=== PATIENT | female | born 1955 | race Caucasian/White ===

== ENCOUNTER 2018-01-18 05:24 | Observation (INO) | payer OTHER ==
[2018-01-18] VITALS (9 sets, daily range): BP systolic 142–163; BP diastolic 62–95
[~2018-01-18] VITALS: Ht 170.2 cm; Wt 132.0 kg
--- NOTE | ~2018-01-18 | O ---
[facility] [place] [address] OPERATIVE REPORT Name: ADELINA DA SILVA David Room #: 411-P [facility] M.Danilo#: [id number] Admission: 01/18/18 Attend Phys: Jorden Montes MD Discharge: Date of : 51 Report #: [id number] THIS REPORT FOR: //name// CC: Arthur Pittman PREOPERATIVE DIAGNOSIS: Incarcerated incisional hernia. POSTOPERATIVE DIAGNOSES: 1. Incarcerated incisional hernia. 2. Mildly nodular liver with fatty liver. PROCEDURES PERFORMED: 1. Laparoscopic repair of incarcerated incisional hernia with a 6-inch circular Ventralight ST with echo technology. 2. Needle biopsy of liver. ANESTHESIA: General. SURGEON: Jorden Montes M.D. COMPLICATIONS: None. ESTIMATED BLOOD LOSS: 10 mL. PROCEDURE NOTE: With the patient under anesthesia, she received IV vancomycin. Abdomen was prepped and draped in the sterile fashion. Flores catheter was placed. Timeout was performed. A 0.25% Marcaine was used to incise the skin. An incision was made in the left upper quadrant. This was about 2 cm in size. After incising through the skin and subcutaneous tissue, the anterior fascia was identified. The anterior fascia was opened under visualization and 0 Vicryl suture placed on the fascia. The muscle was spread with hemostat. Posterior sheath was then identified, grasped with hemostat and opened between the clamps. The free peritoneal cavity was identified. Origin balloon trocar was then placed. A 10-mm scope was placed. The liver did appear mildly nodular and fatty looking. The patient has had past elevated liver function tests, CT showing fatty liver. The two 5-mm trocars were placed in the lateral abdomen. These were placed lateral to the inferior epigastric vessel. These were placed under visualization, without harm to the underlying tissue. The patient's incisional hernia was incarcerated with majority of the omental fat. Inferiorly, there was fat that was tethered to the sigmoid colon. The incarcerated fat was free and reduced back into the abdominal cavity. The fascia defect was identified. There were 2 separate defects; one was about a centimeter in size superiorly. There was a larger defect which was somewhat septated and the entire defect measured 6 cm in the craniocaudad direction. A 15 cm or 6-inch oneida Ventralight mesh was used with ST. The Origin balloon [address] [address] OPERATIVE REPORT Name: ADELINA DA SILVA Room #: 411-P [facility] Darlene Jaimes#: [id number] Admission: 01/18/18 Attend Phys: Jorden Montes MD Discharge: Date of : 51 Report #: [id number] trocar was removed. Mesh was placed directly into this opening. The balloon trocar was then replaced. The mesh was opened up. The suture retrieval was placed just below the umbilicus and the balloon port of the echo system was pulled up. The echo was inflated. This allowed the mesh to be pulled up against the wall. The mesh was then tacked with SorbaFix; 30 tacks were used. The tacks were placed about 2 cm apart along the edges and then also placed internal and also placed in the medial aspect of the mesh. Again, the mesh did not extend to the inferior epigastric vessel. Prior to the mesh, I did dissect the peritoneum inferiorly off the wall. The peritoneum was then tacked back up. I was above the bladder area. [facility] suture was placed with transfascial suture. This was placed at 12, 3, 6 and 9 o'clock positions. Small incision was made. The suture retrieval was placed through the incision, through the fascia and through the mesh, grabbing one in and then through the same hole, skin incision through a different area, fascia grabbing the other in. This was performed in 12, 9, 6 and 3 o'clock position. Mesh seated well. No bleeding was identified. Liver biopsy was then performed along the edge of the left lobe of the liver using an 18-gauge Monopty core biopsy and 2 pieces of the liver were obtained. There were fatty changes in the liver on CT scan and she did have a FibroScan, but I am afraid that she may have early cirrhosis. Surgicel was placed over this biopsy site. Hemostasis obtained. Trocars removed. CO2 was evacuated. The posterior sheath at the small cutdown site was closed with [id number]-zx-henue 0 Vicryl x 2 and 2-0 PDS lidnni-kp-ayzpq x 2. Anterior sheath was then also closed with 0 PDS bzreko-dw-bkgbh x 2. Skin was irrigated. The trocar site skin incision was closed with 5-0 PDS. Dermabond was placed over the incisions including the small transfascial suture sites. Band-Aid was placed over the incision sites. The patient tolerated procedure well. Flores catheter will be removed. She will be taken to the recovery room in good condition. By: [id number] Jorden Montes MD /nt
--- NOTE | ~2018-01-18 | EKG ---
[address] [address] ELECTROCARDIOGRAM REPORT Name: ADELINA DA SILVA Room #: 150-2 [facility]#: [id number] Admission: 01/18/18 Attend Phys: Jorden Montes MD Discharge: Date of : 51 Report #: [id number] THIS REPORT FOR: //name// [facility] Test Date: 2018-01-18 Test Time: 06:39:13 Pat Name: ADELINA DA SILVA Department: Room: 150 2 Gender: F Rehabilitation Program Manager: BOY : 1955 Requested By: Jorden Montes Order Number: [id number] MD: Walter Lyons Measurements Intervals Cranks Rate: 68 P: 49 FL: 157 QRS: 74 QRSD: 105 T: 22 QT: 435 QTc: 463 Interpretive Statements Sinus rhythm No previous ECG available for comparison Electronically Signed On 01-18-2018 8:17:48 CDT by Walter Lyons [email or web address] <ELECTRONICALLY SIGNED> By: Walter Lyons MD 01/18/18 0817 0639 06 MD DELMY Hairston
--- NOTE | ~2018-01-18 | PATH ---
[facility] [address] [place] [address] PATHOLOGY RPT PROCEDURE Name: REKHAADELINA D Room #: 411-P HAYDEN Jaimes#: [id number] Admission: 01/18/18 Date of : 51 Discharge: 01/19/18 Report #: [id number] Path Case #: [id number] [facility] Accession Number: [id number] . 01 Material submitted: . LIVER BIOPSY X2 . 01 Clinical history: . Incisional hernia . 02 Diagnosis: Liver, needle core biopsy: - Steatohepatitis with mild activity and bridging fibrosis. - NAFLD activity score: 5/8 (please see comment). [facility]/01/20/2018 . 02 Comment: Examination shows approximately 66% macrovesicular steatosis (score of 2/3), rare foci of lobular inflammation (2-4 foci, score of 2/3) as well as a few ballooned hepatocytes in the periportal areas (score of 1/2). The total NAFLD activity score is 5/8. Satellitosis is not identified. The portal chronic inflammation is mixed, and shows occasional plasma cells, lymphocytes as well as a rare eosinophil. There are no granulomata identified, ductular proliferation, lymphoid aggregates, or hepatocyte rosettes present. It is noted the liver enzymes (AST as well as ALT and the alk phos are within limits). . Special stains are performed on block A2. Trichrome stain shows scattered areas of perisinusoidal fibrosis, periportal fibrosis as well as dnpihi-os-jeqxgp bridging fibrosis in scattered areas. The reticulin stain is distorted by the steatosis. The iron stain is negative. PAS with and without diastase show no intracytoplasmic globules in zone 1. . Steatohepatitis can be seen in several clinical settings including situations of insulin resistance, with alcohol use, as an adverse reaction to several medications, with hyperlipidemias, after gastric or small bowel resections, and as an idiopathic variant. Please correlate clinically. . (IUV:mml; 01/20/2018) . 02 Electronically signed: . Hien Moreira MD, Pathologist NPI- [id number] . 01 Gross description: . The specimen is received in formalin, labeled "Adelina Zhu - Liver biopsy X2", are two cores measuring 2.0 cm and 1.6 cm [place] [address] PATHOLOGY RPT PROCEDURE Name: ADELINA ZUH Room #: 411-P [facility]AYDEN Jaimes#: [id number] Admission: 01/18/18 Date of : 51 Discharge: 01/19/18 Report #: [id number] Path Case #: [id number] 0.1 cm in diameter. Specimen is entirely submitted in A1-A2. . (SWS; 01/18/2018) [facility]/ . 02 Pathologist provided ICD-10: K75.81, K74.0 . 02 CPT . 259118, 378996, 443679, 595125, 947158, 218713 Performed at: [address], [place] [id number] MD Erik Krause MD Phone: [phone] Performed at: [address] [id number] MD Hien Moreira MD Phone: [phone]
[~2018-01-18 05:24] MED LIST: ALEVE220 MG PO; FARXIGA5 MG PO; GLUCOPHAGE1000 MG PO; OMEPRAZOLE 20 M20 M1 PO; PAXIL40 MG PO; PROAIR HFA8.5 GM INH; SIMVASTATIN40 MG PO; XANAX 0.5 MG0.5 MG PO
[2018-01-18 06:58] LABS: HEMATOCRIT 42.4 % (37.0-47.0); HEMOGLOBIN 14.3 gm/dL (12.0-15.0)
[2018-01-18 07:00] LABS: CALCIUM 9.4 mg/dL (8.5-10.1); CREATININE 0.9 mg/dL (0.6-1.0); POTASSIUM 3.8 mmol/L (3.5-5.1)
[2018-01-18 07:06] LABS: TOTAL BILIRUBIN 0.5 mg/dL (<0.1-1.0); TOTAL PROTEIN 7.8 g/dL (6.4-8.2)
[2018-01-19 04:00] VITALS: BP 118/57
[2018-01-19 09:00] VITALS: BP 133/65
[2018-01-19] MEDS ORDERED: NORCO 5-325 TA1 EACH PO (13:17)
[2018-01-19] MEDS ORDERED: VALIUM5 MG PO (13:17)
[2018-01-19 13:34] VITALS: BP 133/65
== END 2018-01-19 14:11 | disposition home or self-care (01) ==
LOC: TBA 05:24 → OR 05:24 → 4N 11:10 → OR 13:12 → ENTRNSPT 01-19 14:03 → EDTRNSPTSTS 01-19 14:07 → 4N 01-19 14:11
PROVIDERS: Surgery
DX: K43.2 Incisional hernia without obstruction or gangrene (principal); E11.9 Type 2 diabetes mellitus without complications; K76.0 Fatty (change of) liver, not elsewhere classified; Z79.899 Other long term (current) drug therapy
CPT/HCPCS: 50010; 50101; 50249; 50386; 50455; 50555; 50687; 50978; 51046; 53065; 53307; 53310; 54022; 54118; 56525; 56526; 56531; 56638; 57092; 62110; 62900; 70005